=== PATIENT | female | born 1995 | race Caucasian/White ===

== ENCOUNTER 2017-01-26 15:50 | Emergency (ER) | payer OTHER ==
[~2017-01-26] VITALS: Ht 152.4 cm; Wt 42.7 kg
[~2017-01-26 15:50] MED LIST: NAPROSYN500 MG PO; PRENATAL TABLE1 EAC3 PO; RHINOCORT ALL8.43 ML BOTH NARES
[2017-01-26 16:28] LABS: HEMATOCRIT 42.5 % (36.0-46.0); MCHC 32.7 G/DL (30.0-36.0); MCV 85.7 FL (83-99); MEAN PLAT.VOLUME 9.9 uM^3 (9.5-12.4); PLATELET COUNT 260 K/uL (156-360); RBC DIS.WIDTH-CV 14.1 % (11.8-14.6); RBC DIS.WIDTH-SD 44.2 % (39-53); RED BLOOD COUNT 4.96 M/uL (3.80-5.20); WHITE BLOOD COUNT 11.4 K/uL (4.1-10.2)
[2017-01-26 16:37] LABS: CHLORIDE 105 mEq/L (99-109); POTASSIUM 3.9 mEq/L (3.7-5.4); SODIUM 138 mEq/L (136-147)
[2017-01-26 16:39] LABS: GLUCOSE 72 mg/dL (70-99)
[2017-01-26 16:40] LABS: ANION GAP 9 MEQ/L (2-14)
[2017-01-26 16:41] LABS: TOTAL BILIRUBIN 0.3 mg/dL (0.0-1.0)
[2017-01-26 16:43] LABS: ALKALINE PHOSPHATASE 106 IU/L (3-129); GFR ESTIMATE (CALCULATED) > 59 mL/min/
[2017-01-26 16:44] LABS: UREA NITROGEN (BUN) 14 mg/dL (9-23)
[2017-01-26 16:51] LABS: QUANTITATIVE HCG < 4.0 MIU/ML
[2017-01-26] MEDS ORDERED: DOXYCYCLINE MO100 MG PO (18:18)
[2017-01-26 18:39] VITALS: BP 116/71
[2017-01-26 19:51] LABS: ADD MIUA? YES; BILIRUBIN NEGATIVE; BLOOD NEGATIVE; COLOR YELLOW ((YELLOW)); GLUCOSE (STRIP) NEGATIVE; KETONES 5; LEUKOCYTES TRACE; NITRITE NEGATIVE; PROTEIN (STRIP) NEGATIVE; SPECIFIC GRAVITY 1.026 (1.000-1.030); UROBILINOGEN 0.2 MG/DL (0.2-1.0)
[2017-01-26 20:13] LABS: BACTERIA NONE SEEN /HPF; EPITHELIAL CELLS NONE SEEN /HPF; MUCUS 1+ /LPF; RED BLOOD CELLS 0-5 /HPF (0-5); UCUL ADDED? NO
[2017-01-28 12:18] LABS: CHLAMYDIA TRACHOMATIS POSITIVE; NEISSERIA GONORRHOEAE NEGATIVE
== END 2017-01-26 18:45 | disposition home or self-care (01) ==
LOC: EME 15:50
PROVIDERS: Physician Assistant
DX: N73.9 Female pelvic inflammatory disease, unspecified (principal); F17.200 Nicotine dependence, unspecified, uncomplicated; Z88.1 Allergy status to other antibiotic agents; Z88.0 Allergy status to penicillin
CPT/HCPCS: 80053; 81003; 84702; 85027; 87210; 87491; 87591; 99281; 99284; J0696

== ENCOUNTER 2017-04-27 22:31 | Emergency (ER) | payer OTHER ==
[~2017-04-27] VITALS: Ht 152.4 cm; Wt 43.4 kg
[~2017-04-27 22:31] MED LIST changes: +DOXYCYCLINE MO100 MG PO
[2017-04-27 22:35] VITALS: BP 139/84
[2017-04-28] MEDS ORDERED: KEFLEX500 MG PO (17:36)
== END 2017-04-27 23:37 | disposition left against medical advice (07) ==
LOC: EME 22:31
DX: S61.512A Laceration without foreign body of left wrist, initial encounter (principal); Z53.21 Procedure and treatment not carried out due to patient leaving prior to being seen by health care provider

== ENCOUNTER 2017-04-28 14:41 | Emergency (ER) | payer OTHER ==
[~2017-04-28] VITALS: Ht 157.5 cm; Wt 43.3 kg
[2017-04-28 14:56] VITALS: BP 153/96
[2017-04-28] MEDS ORDERED: KEFLEX500 MG PO (17:36)
== END 2017-04-28 17:45 | disposition home or self-care (01) ==
LOC: EME 14:41
DX: S51.812A Laceration without foreign body of left forearm, initial encounter (principal); X99.0XXA Assault by sharp glass, initial encounter; Z23 Encounter for immunization; F17.200 Nicotine dependence, unspecified, uncomplicated; Z88.1 Allergy status to other antibiotic agents; Z88.0 Allergy status to penicillin
CPT/HCPCS: 73090; 99281; 99282; J2060

== ENCOUNTER 2017-05-09 10:48 | Emergency (ER) | payer OTHER ==
[~2017-05-09] VITALS: Ht 152.4 cm; Wt 43.3 kg
[~2017-05-09 10:48] MED LIST changes: +KEFLEX500 MG PO
[2017-05-09] MEDS ORDERED: KEFLEX500 MG PO (12:32)
[2017-05-09 13:12] VITALS: BP 111/69
== END 2017-05-09 13:13 | disposition home or self-care (01) ==
LOC: EME 10:48
DX: S61.511D Laceration without foreign body of right wrist, subsequent encounter (principal); W25.XXXD Contact with sharp glass, subsequent encounter; Z48.02 Encounter for removal of sutures; Z91.14 Patient's other noncompliance with medication regimen; Z88.0 Allergy status to penicillin; F17.200 Nicotine dependence, unspecified, uncomplicated
CPT/HCPCS: 99281; 99284

== ENCOUNTER 2017-09-29 17:57 | Emergency (ER) | payer SELFPAY ==
[~2017-09-29] VITALS: Ht 152.4 cm; Wt 42.1 kg
[2017-09-29 19:48] LABS: HEMATOCRIT 43.1 % (36.0-46.0); HEMOGLOBIN 14.7 G/DL (11.9-15.5); MCH 29.1 PG (29.0-34.0); MCHC 34.1 G/DL (30.0-36.0); MCV 85.2 FL (83-99); PLATELET COUNT 291 K/uL (156-360); RED BLOOD COUNT 5.06 M/uL (3.80-5.20); WHITE BLOOD COUNT 5.9 K/uL (4.1-10.2)
[2017-09-29 19:56] LABS: CHLORIDE 105 mEq/L (99-109); POTASSIUM 3.5 mEq/L (3.7-5.4); SODIUM 139 mEq/L (136-147)
[2017-09-29 19:58] LABS: GLUCOSE 83 mg/dL (70-99)
[2017-09-29 20:02] LABS: CREATININE 0.8 mg/dL (0.6-1.3); GFR ESTIMATE (CALCULATED) > 59 mL/min/
[2017-09-29 20:03] LABS: UREA NITROGEN (BUN) 10 mg/dL (9-23)
[2017-09-30 01:11] LABS: D-DIMER ELISA < 150.00 ng/mLDDU (<230)
[2017-09-30 01:20] LABS: TROP-I INTERPRETATION NEGATIVE; TROPONIN-I < 0.01 ng/mL (0.0-0.30)
[2017-09-30 01:44] VITALS: BP 122/71
== END 2017-09-30 01:57 | disposition home or self-care (01) ==
LOC: EME 17:57 → EXP 17:57
PROVIDERS: Physician Assistant Medical
DX: B34.9 Viral infection, unspecified (principal); F41.9 Anxiety disorder, unspecified; Z88.0 Allergy status to penicillin; Z87.891 Personal history of nicotine dependence
CPT/HCPCS: 71046; 80048; 84484; 85027; 85379; 93005; 94640; 99281; 99284

== ENCOUNTER 2017-12-22 02:03 | Emergency (ER) | payer OTHER ==
[~2017-12-22] VITALS: Ht 152.4 cm; Wt 44.7 kg
[2017-12-22] MEDS ORDERED: FLEXERIL10 MG PO (02:43)
[2017-12-22] MEDS ORDERED: NAPROSYN500 MG PO (02:44)
[2017-12-22 03:06] VITALS: BP 124/78
== END 2017-12-22 03:10 | disposition home or self-care (01) ==
LOC: EME 02:03
DX: M54.9 Dorsalgia, unspecified (principal); V49.40XA Driver injured in collision with unspecified motor vehicles in traffic accident, initial encounter; Y92.410 Unspecified street and highway as the place of occurrence of the external cause; F17.200 Nicotine dependence, unspecified, uncomplicated
CPT/HCPCS: 99281; 99283